=== PATIENT | male | born 1965 | race Asian ===

== ENCOUNTER 2022-04-19 01:15 | Emergency (ER) | payer SELFPAY ==
[2022-04-19 01:32] VITALS: BP 152/76; PULSE 94; O2SAT 97
[2022-04-19 01:42] VITALS: BP 151/96; PULSE 103; RESP 20; TEMP 36.7; O2SAT 94
[2022-04-19 01:44] VITALS: BMI 38.7
--- OUTSIDE RECORDS SUMMARY | 2022-04-19 02:03 | XMS_ITS | Continuity of Care Document ---
:1965 Author Organization [facility] Address [address] [place] [id number]- Care Team Providers Name Role Phone Not on Staff, PCP Primary Care Physician Unavailable Encounter [facility] [place] Date(s): 03/05/22 - 03/05/[address] [address]- Encounter Diagnosis Abdominal pain (Final) - 03/05/22 Atypical chest pain (Final) - 03/05/22 Depression (Final) - 03/05/22 Alcohol use (Final) - 03/05/22 Discharge Disposition: A-D/C Home Attending Physician: Israel Chen MD Admitting Physician: Israel Chen MD Referring Physician: Not on Staff, Referring MD Allergies, Adverse Reactions, Alerts No Known Allergies Medications acamprosate 333 mg oral delayed release tablet 1 tablet = 333 mg, By Mouth, 3 times a day, # 42 tablet, 0 Refills, Maintenance, 07/19/20 18:35:00 EDT, EC Tablet, [facility]/pharmacy #[id number], Partial fill upon patient request if the prescription is for a schedule II opioid drug. Start Date: 07/19/20 Stop Date: 08/02/20 Status: Orderedfolic acid 1 mg oral tablet 1 mg, 1, tablet, By Mouth, Daily, # 30 tablet, Refills 0, Tot. Refills 0, Maintenance, 07/19/20 18:34:00 EDT, Route to Pharmacy Electronically, [facility]/pharmacy #[id number], Partial fill upon patient request if the prescription is for a schedule II opioid drug. Start Date: 07/19/20 Stop Date: 08/18/20 Status: Orderedlisinopril 20 mg oral tablet 20 mg, 1, tablet, By Mouth, Daily, # 30 tablet, Refills 0, Maintenance, 07/18/20 7:56:00 EDT, Partial fill upon patient request if the prescription is for a schedule II opioid drug. Start Date: 07/18/20 Status: Orderedsertraline 25 mg oral tablet 1 tablet = 25 mg, By Mouth, Daily, # 30 tablet, 0 Refills, Maintenance, 07/18/20 7:57:00 EDT, Tablet, Partial fill upon patient request if the prescription is for a schedule II opioid drug. Start Date: 07/18/20 Status: Ordered Results Radiology Reports Exam Date Time Procedure Performing Provider Status 03/05/22 6:[address] Abd/Pelvis W/ IV Contrast Only Liza Niño; Jenna (Verified) Notes:(CT Abd/Pelvis W/ IV Contrast Only) Reason For Exam: RUQ abdominal pain;PainRESULT: CT Abd/Pelvis W/ IV Contrast Only CT Chest W/ Contrast, CT Abd/Pelvis W/ IV Contrast Only Reason: Other:; Chest Pain; Clinical Question(s): Other: TECHNIQUE: Helical CT scan of the chest, abdomen and pelvis with IV contrast, formatted in 3 planes.The study was performed with enteric contrast. Weight- based protocol using automatic tube modulationwas used to optimize exposure parameters. CTDIvol Body: 18.90 mGy, DLP Body: 1442 mGy*cm. COMPARISON: CT chest 07/18/2020 FINDINGS - CHEST: TOPOGRAM, LINES AND TUBES: None. TRACHEA AND MAIN BRONCHI: Patent without evidence of tracheal or endobronchial lesion. LUNGS AND PLEURA: Mild dependent subsegmental atelectasis. No consolidation or pulmonary mass. Mild apical emphysema. No pleural effusion or pneumothorax. MEDIASTINUM AND PURNIMA: Visualized thyroid gland is normal. No mediastinal or hilar lymphadenopathy. Esophagus is nondistended. HEART AND VESSELS: Heart is at the upper limits of normal for size. Mitral and tricuspid valve replacements. Left atrial appendage clip. Mediastinal surgical clips. No pericardial effusion. Mild coronary artery calcifications. Thoracic aorta is nonaneurysmal. Mild aortic calcifications. Pulmonary arteries are normal in caliber. DIAPHRAGM: Unremarkable. CHEST WALL: Unremarkable. FINDINGS - ABDOMEN AND PELVIS: LIVER: Diffuse hepatic steatosis. Severe cirrhotic morphology again demonstrated as evidenced by nodular contour, interlobar atrophy and posterior notching of right hepatic lobe. No suspicious lesion. GALLBLADDER: Moderately distended with otherwise normal CT appearance. BILE DUCTS: No biliary ductal dilatation. SPLEEN: Normal. PANCREAS: Normal. No pancreatic ductal dilatation. ADRENAL GLANDS: No nodules. KIDNEYS AND URETERS: No hydronephrosis. Kidneys enhance symmetrically. Subcentimeter right renal hypodensity, too small to characterize, but likely representing a cyst. No suspicious mass. BLADDER: Bladder is normal. REPRODUCTIVE: STOMACH AND BOWEL: Stomach is physiologically-distended. No bowel obstruction. No inflammatory changes. APPENDIX: Normal. PERITONEUM AND RETROPERITONEUM: No pneumoperitoneum or loculated fluid collection. No omental or mesenteric mass. LYMPH NODES: No lymphadenopathy. VESSELS: Mild atherosclerotic calcification. Abdominal aorta is nonaneurysmal. Portosplenic veins are patent without venous thrombosis. Recanalized paraumbilical vein again demonstrated. ABDOMINAL WALL: Unremarkable. FINDINGS - BONES: Multilevel degenerative changes involve the spine. Chronic appearing right anterior second and thirdrib fractures, unchanged. No acute osseous abnormality. Median sternotomy wires. IMPRESSION - CHEST: 1. Cardiac postsurgical changes with no acute abnormality. 2. No pulmonary consolidation. IMPRESSION - ABDOMEN AND PELVIS: 1. No acute abnormality in the abdomen and pelvis. 2. Hepatic steatosis and severe cirrhosis. 3. Portal hypertension as evidenced by recanalized paraumbilical vein. No ascites. WSN: [id number] Ordering Physician: Devonte Chavez Dictated By: Israel Hay MD Dictated Date/Time: 03/05/22 6:46 pm Reviewed By: Israel Hay MD Signed By: Israel Hay MD Signed Date/Time: 03/05/22 6:46 pm Transcribed By: ALDA Transcribed Date/Time: 03/05/22 6:32 pm Exam Date Time Procedure Performing Provider Status 03/05/22 6:[address] Chest W/ Contrast Erin Niño; Jenna ([place]) Notes:(CT Chest W/ Contrast) Reason For Exam: Chest Pain;Other:RESULT: CT Chest W/ Contrast CT Chest W/ Contrast, CT Abd/Pelvis W/ IV Contrast Only Reason: Other:; Chest Pain; Clinical Question(s): Other: TECHNIQUE: Helical CT scan of the chest, abdomen and pelvis with IV contrast, formatted in 3 planes.The study was performed with enteric contrast. Weight- based protocol using automatic tube modulationwas used to optimize exposure parameters. CTDIvol Body: 18.90 mGy, DLP Body: 1442 mGy*cm. COMPARISON: CT chest 07/18/2020 FINDINGS - CHEST: TOPOGRAM, LINES AND TUBES: None. TRACHEA AND MAIN BRONCHI: Patent without evidence of tracheal or endobronchial lesion. LUNGS AND PLEURA: Mild dependent subsegmental atelectasis. No consolidation or pulmonary mass. Mild apical emphysema. No pleural effusion or pneumothorax. MEDIASTINUM AND PURNIMA: Visualized thyroid gland is normal. No mediastinal or hilar lymphadenopathy. Esophagus is nondistended. HEART AND VESSELS: Heart is at the upper limits of normal for size. Mitral and tricuspid valve replacements. Left atrial appendage clip. Mediastinal surgical clips. No pericardial effusion. Mild coronary artery calcifications. Thoracic aorta is nonaneurysmal. Mild aortic calcifications. Pulmonary arteries are normal in caliber. DIAPHRAGM: Unremarkable. CHEST WALL: Unremarkable. FINDINGS - ABDOMEN AND PELVIS: LIVER: Diffuse hepatic steatosis. Severe cirrhotic morphology again demonstrated as evidenced by nodular contour, interlobar atrophy and posterior notching of right hepatic lobe. No suspicious lesion. GALLBLADDER: Moderately distended with otherwise normal CT appearance. BILE DUCTS: No biliary ductal dilatation. SPLEEN: Normal. PANCREAS: Normal. No pancreatic ductal dilatation. ADRENAL GLANDS: No nodules. KIDNEYS AND URETERS: No hydronephrosis. Kidneys enhance symmetrically. Subcentimeter right renal hypodensity, too small to characterize, but likely representing a cyst. No suspicious mass. BLADDER: Bladder is normal. REPRODUCTIVE: STOMACH AND BOWEL: Stomach is physiologically-distended. No bowel obstruction. No inflammatory changes. APPENDIX: Normal. PERITONEUM AND RETROPERITONEUM: No pneumoperitoneum or loculated fluid collection. No omental or mesenteric mass. LYMPH NODES: No lymphadenopathy. VESSELS: Mild atherosclerotic calcification. Abdominal aorta is nonaneurysmal. Portosplenic veins are patent without venous thrombosis. Recanalized paraumbilical vein again demonstrated. ABDOMINAL WALL: Unremarkable. FINDINGS - BONES: Multilevel degenerative changes involve the spine. Chronic appearing right anterior second and thirdrib fractures, unchanged. No acute osseous abnormality. Median sternotomy wires. IMPRESSION - CHEST: 1. Cardiac postsurgical changes with no acute abnormality. 2. No pulmonary consolidation. IMPRESSION - ABDOMEN AND PELVIS: 1. No acute abnormality in the abdomen and pelvis. 2. Hepatic steatosis and severe cirrhosis. 3. Portal hypertension as evidenced by recanalized paraumbilical vein. No ascites. WSN: [id number] Ordering Physician: Devonte Chavez Dictated By: Bharti RESENDIZ, Israel Oswald Dictated Date/Time: 03/05/22 6:46 pm Reviewed By: Israel Hay MD Signed By: Israel Hay MD Signed Date/Time: 03/05/22 6:46 pm Transcribed By: ALDA Transcribed Date/Time: 03/05/22 6:32 pm Vital Signs Most recent to oldest [Reference 1 2 3 Range]: Oxygen Saturation [94-100 %] 98 % 100 % 100 % (03/05/22 7:50 PM) (03/05/22 6:24 PM) (03/05/22 4:40 P M) Pulse Rate [55-90 bpm] 62 bpm 79 bpm 70 bpm (03/05/22 7:50 PM) (03/05/22 6:24 PM) (03/05/22 4:40 P M) Blood Pressure [90-138/55-84 mm 113/91 mm Hg 134/91 mm Hg 130/87 mm Hg Hg] (03/05/22 7:50 PM) (03/05/22 6:24 PM) (03/05/22 4:40 P M) Respiratory Rate [16-30 br/min] 16 br/min 13 br/min 18 br/min (03/05/22 7:50 PM) *L* (03/05/22 4:40 PM ) (03/05/22 6:24 PM) Temperature [96.8-100.4 DegF] 97.8 DegF (03/05/22 4:40 PM) Mode of Delivery (Oxygen) Room air Room air Room a ir (03/05/22 7:50 PM) (03/05/22 6:24 PM) (03/05/22 4:40 P M) Blood pressure sites Arm, left Arm, left Arm, left (03/05/22 7:50 PM) (03/05/22 6:24 PM) (03/05/22 4:40 P M) Temperature Route Oral (03/05/22 4:40 PM) Social History Social History Type Response Smoking Status 10 or more cigarettes (1/2 p ack or more)/day in last 30 days; Interested in cessation: No; Patient wants NRT during admission Yes entered on: 07/18/20 Sex Note Israel Chen MD: PERFORM Event Display: Patient Education Leaflets Authored Date: [id number] Depression ?? [id number] Depression Depression is a very common mental health problem. It's not just a state of being unhappy or sad. It's a true disease. The cause seems to be linked to a change in chemicals that send signals in the brain. These things increase a person???s risk of depression: ??? A family history of depression, alcoholism, or suicide ??? Chronic illness ??? Chronic pain ???Migraine headaches ??? High emotional stress Depression may be easier to see in others. You may have a hard time seeing it in yourself. It can show in many physical and emotional ways. These include: ??? Loss of appetite ??? Overeating ??? Not being able to sleep ??? Sleeping too much ??? A lot of tiredness not linked to physical activity ??? Restlessness or irritability ??? Slowness of movement or speech ??? Feeling sad or withdrawn ??? Loss of interest in things you once enjoyed ??? Trouble??concentrating, remembering,??or making decisions ??? Thoughts of harming or killing yourself, or thoughts that life is not worth living ??? Low self-esteem The treatment for depression may include both medicine and psychotherapy. Antidepressants can ease symptoms. They can also make it easier for you to do daily tasks. Therapy can offer emotional support. It can also help you understand things that may be causing the depression. Home care ??? Ongoing care and support help people manage this disease. Find a healthcare provider and therapist who meet your needs. Get help when you feel like you may be getting ill. ??? Be kind toyourself. Make it a point to do things that you enjoy. This may be gardening, walking in nature, or going to a movie. Reward yourself for small successes. ??? Take care of your body. Eat a balanced diet. Eat foods low in saturated fat. Eat a lot of fruits and vegetables. Exercise at least 3 times a week for 30 minutes. Even mild to moderate exercise like brisk walking can make you feel better. ??? Take medicine as prescribed. Don't stop your medicine or change the dose unless you talk with your healthcare provider. ??? Once you start medicine, expect your symptoms to get better slowly. Depression will lift over time. It doesn't get better right away. Ask your healthcare provider how long it will take for a medicine to start working. ??? Don't share your medicine. Don???t use someone else's medicine. ??? Tell your healthcare providers all the medicines you take. This includes prescription and jgli-dbt-[id number] medicines. It includes vitamins and herbal supplements. Some supplements can interact with medicines. They can cause dangerous side effects. Ask your pharmacist about medicine interactionswhen you have questions. ??? Don't make major decisions until you feel better. This includes things such as a job change, a divorce, or a marriage. ??? Don't drink alcohol. It can make depression worse. ??? Talk with your family and??trusted friends??about your feelings and thoughts.??Ask them to helpyou notice behavior changes early. You can then get help and, if needed, your medicine can be changed. ??? Talk with your healthcare provider if you are not getting better. They may change your medicine or have you try another treatment. ?? Follow-up care Follow up with your healthcare provider as advised. ?? Crisis care Call [phone] if you have thoughts of harming yourself or others. When you call or text [phone], you will beconnected to trained crisis counselors. An online chat option is also available. [employer] is free and available 25/09. 988 counselors will work with 911 to help you get the care you need. Call 988 if you: ??? Have suicidal thoughts, a suicide plan, and a way to carry out the plan ??? Have serious thoughts of hurting someone else ??? Have trouble breathing ??? Are??very confused ??? Feel very drowsy or have??trouble awakening ??? Faint ??? Have new chest pain that becomes more severe, lasts longer, or spreads into your shoulder, arm, neck, jaw, or back ?? When to get medical care Call your healthcare provider right away if any of these happen: ??? Your symptoms get worse ??? You have extreme depression, fear, anxiety, or anger toward yourself or others ??? You feel out of control ??? You feel that you may try to harm yourself or another ??? You hear voices other people don't hear ??? You see things other people don't see ??? You don't sleep or eat for 3 days in a row ??? Friends or family express concern over your behavior and ask you to get help ?? Last Reviewed Date: 2021 ?? [employer]. All rights reserved. This information is not intended as a substitute for professional medical care. Always follow your healthcare professional's instructions. ??Israel Chen MD: PERFORM Event Display: Patient Education Leaflets Authored Date: [id number] Psychiatric Outpatient Referral List ?? 263 Psychiatric Outpatient Referral List [facility]hr Emergency [facility]? [address], [place]? [phone] ? [phone] [facility] Central Intake? [phone] ? [phone] [facility]? [address], [place] ? [phone] ? Walk in: T-Th 9:45-12:45pm [facility]? [address], [place]? [phone] [facility]? [phone] [facility]? [address], [place]? [phone] [facility]? [address], [place]?[phone] [facility]? [address], [place]? [phone] [facility]? [address], [place]? [phone] [facility]? [address], [place]? [phone] ? Walk in: M-Th 8:00-4:00pm [facility]? [address], [place]? [phone] [facility] [place] [facility]? [address] [place]? [phone] [facility]? [address], [place] ? [phone] [facility]? [address], [place]? [phone] [facility]? [address], [place]? [phone] [facility]? [place] &&[place]? [phone] [facility] [address], [place]? [phone] [facility]? [place] &&[place]?[phone] [facility]? [address], [place] ? [phone] [facility]? [address], [place]? [phone] [facility]? [address], [place]? [phone] ? Walk in: M-W 9:30 or 10:30am [facility]? [address], [place]? [phone] ? [phone] Domestic Violence 24 Hr Hot Lines: ? [facility]? [phone] ? [facility]? [phone]? [facility]? [phone] ? [facility]? [phone] ?? Elder Services: ? [facility] [place] [facility]? [phone] ? [facility] [place] [facility] ? [phone] ?? Legal Advocacy Hot Line: ? [facility] ? [phone] (9:30-12:45 M-Zenia) ?? [place] Dept of Transitional Assistance: ? [place] [phone] / [place] [phone] / [facility] [phone] ?? [facility]? [address], [place], [place]? [phone] [facility]? [address] [place] [address], [place], [place]? [phone] [facility]? [address], [place], [place]? [phone] [facility] ??? [facility]? [address], [place], [place]? [phone] ? [phone] ? After 5pm:? [phone] [facility] ??? [facility] [address], [place], [place]? [phone] ? [phone]? After 5pm:? [phone] [facility]? [address], [place], [place]? [phone] [facility]? [address], [place], [place]? [phone] ? [phone] [facility]? [address], [place], [place]? [phone] [facility]? [address], [place], [place]? [phone] [facility]? [address], [place], [place]? [phone] [facility]? [address], [place], [place]? [phone] ? [phone] [facility] ?[address], [place], [place]? [phone] [place] [address]? [address], [place], [place]? [phone] ? [phone] [facility]? [address], [place], [place]? [phone] ? [phone] [facility]? [address], [place], [place]? [phone] [facility]? [address], [place], [place] ? [phone] [facility]? [address], [place], [place]? [phone] ? [phone] ? CT Abdomen and Pelvis W contrast IV [facility] , CIS S: TRANSCRIBE Bharti RESENDIZ, Israel Oswald: VERIFY Event Display: Result: Authored Date: [id number] CT Chest W/ Contrast, CT Abd/Pelvis W/ IV Contrast Only Reason: Other:; Chest Pain; Clinical Question(s): Other: TECHNIQUE: Helical CT scan of the chest, abdomen and pelvis with IV contrast, formatted in 3 planes.The study was performed with enteric contrast. Weight- based protocol using automatic tube modulationwas used to optimize exposure parameters. CTDIvol Body: 18.90 mGy, DLP Body: 1442 mGy*cm. COMPARISON: CT chest 07/18/2020 FINDINGS - CHEST: TOPOGRAM, LINES AND TUBES: None. TRACHEA AND MAIN BRONCHI: Patent without evidence of tracheal or endobronchial lesion. LUNGS AND PLEURA: Mild dependent subsegmental atelectasis. No consolidation or pulmonary mass. Mild apical emphysema. No pleural effusion or pneumothorax. MEDIASTINUM AND PURNIMA: Visualized thyroid gland is normal. No mediastinal or hilar lymphadenopathy. Esophagus is nondistended. HEART AND VESSELS: Heart is at the upper limits of normal for size. Mitral and tricuspid valve replacements. Left atrial appendage clip. Mediastinal surgical clips. No pericardial effusion. Mild coronary artery calcifications. Thoracic aorta is nonaneurysmal. Mild aortic calcifications. Pulmonary arteries are normal in caliber. DIAPHRAGM: Unremarkable. CHEST WALL: Unremarkable. FINDINGS - ABDOMEN AND PELVIS: LIVER: Diffuse hepatic steatosis. Severe cirrhotic morphology again demonstrated as evidenced by nodular contour, interlobar atrophy and posterior notching of right hepatic lobe. No suspicious lesion. GALLBLADDER: Moderately distended with otherwise normal CT appearance. BILE DUCTS: No biliary ductal dilatation. SPLEEN: Normal. PANCREAS: Normal. No pancreatic ductal dilatation. ADRENAL GLANDS: No nodules. KIDNEYS AND URETERS: No hydronephrosis. Kidneys enhance symmetrically. Subcentimeter right renal hypodensity, too small to characterize, but likely representing a cyst. No suspicious mass. BLADDER: Bladder is normal. REPRODUCTIVE: STOMACH AND BOWEL: Stomach is physiologically-distended. No bowel obstruction. No inflammatory changes. APPENDIX: Normal. PERITONEUM AND RETROPERITONEUM: No pneumoperitoneum or loculated fluid collection. No omental or mesenteric mass. LYMPH NODES: No lymphadenopathy. VESSELS: Mild atherosclerotic calcification. Abdominal aorta is nonaneurysmal. Portosplenic veins are patent without venous thrombosis. Recanalized paraumbilical vein again demonstrated. ABDOMINAL WALL: Unremarkable. FINDINGS - BONES: Multilevel degenerative changes involve the spine. Chronic appearing right anterior second and thirdrib fractures, unchanged. No acute osseous abnormality. Median sternotomy wires. IMPRESSION - CHEST: 1. Cardiac postsurgical changes with no acute abnormality. 2. No pulmonary consolidation. IMPRESSION - ABDOMEN AND PELVIS: 1. No acute abnormality in the abdomen and pelvis. 2. Hepatic steatosis and severe cirrhosis. 3. Portal hypertension as evidenced by recanalized paraumbilical vein. No ascites. WSN: [id number] Ordering Physician: Devonte Chavez Dictated By: Israel Hay MD Dictated Date/Time: 03/05/22 6:46 pm Reviewed By: Israel Hay MD Signed By: Israel Hay MD Signed Date/Time: 03/05/22 6:46 pm Transcribed By: ALDA Transcribed Date/Time: 03/05/22 6:[address] Chest W contrast IV [facility] , CIS S: TRANSCRIBE Israel Hay MD: VERIFY Event Display: Result: Authored Date: [id number] CT Chest W/ Contrast, CT Abd/Pelvis W/ IV Contrast Only Reason: Other:; Chest Pain; Clinical Question(s): Other: TECHNIQUE: Helical CT scan of the chest, abdomen and pelvis with IV contrast, formatted in 3 planes.The study was performed with enteric contrast. Weight- based protocol using automatic tube modulationwas used to optimize exposure parameters. CTDIvol Body: 18.90 mGy, DLP Body: 1442 mGy*cm. COMPARISON: CT chest 07/18/2020 FINDINGS - CHEST: TOPOGRAM, LINES AND TUBES: None. TRACHEA AND MAIN BRONCHI: Patent without evidence of tracheal or endobronchial lesion. LUNGS AND PLEURA: Mild dependent subsegmental atelectasis. No consolidation or pulmonary mass. Mild apical emphysema. No pleural effusion or pneumothorax. MEDIASTINUM AND PURNIMA: Visualized thyroid gland is normal. No mediastinal or hilar lymphadenopathy. Esophagus is nondistended. HEART AND VESSELS: Heart is at the upper limits of normal for size. Mitral and tricuspid valve replacements. Left atrial appendage clip. Mediastinal surgical clips. No pericardial effusion. Mild coronary artery calcifications. Thoracic aorta is nonaneurysmal. Mild aortic calcifications. Pulmonary arteries are normal in caliber. DIAPHRAGM: Unremarkable. CHEST WALL: Unremarkable. FINDINGS - ABDOMEN AND PELVIS: LIVER: Diffuse hepatic steatosis. Severe cirrhotic morphology again demonstrated as evidenced by nodular contour, interlobar atrophy and posterior notching of right hepatic lobe. No suspicious lesion. GALLBLADDER: Moderately distended with otherwise normal CT appearance. BILE DUCTS: No biliary ductal dilatation. SPLEEN: Normal. PANCREAS: Normal. No pancreatic ductal dilatation. ADRENAL GLANDS: No nodules. KIDNEYS AND URETERS: No hydronephrosis. Kidneys enhance symmetrically. Subcentimeter right renal hypodensity, too small to characterize, but likely representing a cyst. No suspicious mass. BLADDER: Bladder is normal. REPRODUCTIVE: STOMACH AND BOWEL: Stomach is physiologically-distended. No bowel obstruction. No inflammatory changes. APPENDIX: Normal. PERITONEUM AND RETROPERITONEUM: No pneumoperitoneum or loculated fluid collection. No omental or mesenteric mass. LYMPH NODES: No lymphadenopathy. VESSELS: Mild atherosclerotic calcification. Abdominal aorta is nonaneurysmal. Portosplenic veins are patent without venous thrombosis. Recanalized paraumbilical vein again demonstrated. ABDOMINAL WALL: Unremarkable. FINDINGS - BONES: Multilevel degenerative changes involve the spine. Chronic appearing right anterior second and thirdrib fractures, unchanged. No acute osseous abnormality. Median sternotomy wires. IMPRESSION - CHEST: 1. Cardiac postsurgical changes with no acute abnormality. 2. No pulmonary consolidation. IMPRESSION - ABDOMEN AND PELVIS: 1. No acute abnormality in the abdomen and pelvis. 2. Hepatic steatosis and severe cirrhosis. 3. Portal hypertension as evidenced by recanalized paraumbilical vein. No ascites. WSN: [id number] Ordering Physician: Devonte Chavez Dictated By: Israel Hay MD Dictated Date/Time: 03/05/22 6:46 pm Reviewed By: Israel Hay MD Signed By: Israel Hay MD Signed Date/Time: 03/05/22 6:46 pm Transcribed By: CSB Transcribed Date/Time: 03/05/22 6:32 pm Patient Care team information Care Team PersonnelName: Hazel Starr RN Position: [facility] RN Member Role: Primary Care Nurse Name: Not on Staff, PCP Position: [facility] Physician (General Medicine) Member Role: PCP Name: Ruby Garcia Position: [facility] ED TA [facility] Member Role: Four Roll Calender Operator Name: Israel Chen MD Position: [facility] Resident Member Role: Admitting Physician Address: Address: [address] [place] [address] Name: Devonte Chavez DO Position: [facility] Resident Member Role: ED Resident Address: Address: [address] [place] [address] Name: Kasandra Conroy RN Position: [facility] ED RN W/OE and Tasks Member Role: Patient Care Provider
--- OUTSIDE RECORDS SUMMARY | 2022-04-19 02:03 | XMS_ITS | Continuity of Care Document ---
:1965 Author Organization [facility] Address [address] [place] [address]- Care Team Providers Name Role Phone Not on Staff, PCP Primary Care Physician Unavailable Encounter [facility] Date(s): 07/18/20 - 07/19/[address] [id number] Discharge Disposition: A-D/C AMA Attending Physician: Joseline Arriaga MD Admitting Physician: Margarito Beck MD Referring Physician: Not on Staff, Referring MD Allergies, Adverse Reactions, Alerts Substance Reaction Severity Status NKA Active Medications acamprosate 333 mg oral delayed release tablet 1 tablet = 333 mg, By Mouth, 3 times a day, # 42 tablet, 0 Refills, Maintenance, 07/19/20 18:35:00 EDT, EC Tablet, [facility]/pharmacy #[id number], Partial fill upon patient request if the prescription is for a schedule II opioid drug. Start Date: 07/19/20 Stop Date: 08/02/20 Status: Orderedacetaminophen 325 mg oral tablet 650 mg, Tablet, By Mouth, Every 4 hours, PRN for Pain , Moderate, Routine, 07/18/20 9:52:00 EDT Start Date: 07/18/20 Stop Date: 08/17/20 Status: Orderedfolic acid 1 mg oral tablet 1 mg, 1, tablet, By Mouth, Daily, # 30 tablet, Refills 0, Tot. Refills 0, Maintenance, 07/19/20 18:34:00 EDT, Route to Pharmacy Electronically, [facility]/pharmacy #[id number], Partial fill upon patient request if the prescription is for a schedule II opioid drug. Start Date: 07/19/20 Stop Date: 08/18/20 Status: Orderedlisinopril 20 mg oral tablet 20 mg, 1, tablet, By Mouth, Daily, # 30 tablet, Refills 0, Maintenance, 07/18/20 7:56:00 EDT, Partial fill upon patient request if the prescription is for a schedule II opioid drug. Start Date: 07/18/20 Status: Orderedpyridoxine 50 mg oral tablet 50 mg, 1, tablet, By Mouth, Daily, for 14 days, # 14 tablet, Refills 0, Tot. Refills 0, Acute 08/02/20 18:35:00 EDT, 07/19/20 18:35:00 EDT, Route to Pharmacy Electronically, [facility]/pharmacy #[id number], Partialfill upon patient request if the prescription is... Start Date: 07/19/20 Stop Date: 08/02/20 Status: Orderedsertraline 25 mg oral tablet 1 tablet = 25 mg, By Mouth, Daily, # 30 tablet, 0 Refills, Maintenance, 07/18/20 7:57:00 EDT, Tablet, Partial fill upon patient request if the prescription is for a schedule II opioid drug. Start Date: 07/18/20 Status: Orderedthiamine 100 mg oral tablet 100 mg, 1, tablet, By Mouth, 2 times a day, for 7 days, # 14 tablet, Refills 0, Tot. Refills 0, Acute 07/26/20 18:34:00 EDT, 07/19/20 18:34:00 EDT, Route to Pharmacy Electronically, [facility]/pharmacy #[id number],Partial fill upon patient request if the prescrip... Start Date: 07/19/20 Stop Date: 07/26/20 Status: Ordered Vital Signs Most recent to oldest 1 2 3 [Reference Range]: Oxygen Saturation [94-100 %] 97 % 97 % 97 % (07/19/20 4:00 PM) (07/19/20 12:00 PM) (07/19/20 9: 41 AM) Pulse Rate [55-90 bpm] 100 bpm 97 bpm 88 bpm *H* *H* (07/19/20 9:41 AM ) (07/19/20 4:26 PM) (07/19/20 12:20 PM) Blood Pressure [90-138/55-84 158/96 mm Hg 140/87 mm Hg 151 /87 mm Hg mm Hg] *H* *H* *H* (07/19/20 4:26 PM) (07/19/20 12:20 PM) (07/19/20 9: 41 AM) Respiratory Rate [16-30 20 br/min 20 br/min 20 br/mi n br/min] (07/19/20 4:26 PM) (07/19/20 4:03 PM) (07/19/20 12: 20 PM) Temperature [96.8-100.4 97.2 DegF 98.7 DegF 98.1 Deg F DegF] (07/19/20 4:00 PM) (07/19/20 12:20 PM) (07/19/20 9: 41 AM) Liters per Minute 2 L/min (07/18/20 3:19 AM) Mode of Delivery (Oxygen) Room air Room air Room a ir (07/19/20 4:00 PM) (07/19/20 12:00 PM) (07/19/20 9: 41 AM) Blood pressure sites Arm, left Arm, left Arm, left (07/19/20 4:00 PM) (07/19/20 12:00 PM) (07/19/20 9: 41 AM) Temperature Route Oral Oral Oral (07/19/20 12:00 PM) (07/19/20 9:41 AM) (07/19/20 12 :29 AM) Social History Social History Type Response Smoking Status 10 or more cigarettes (1/2 p ack or more)/day in last 30 days; Interested in cessation: No; Patient wants NRT during admission Yes entered on: 07/18/20 Sex
[2022-04-19] MEDS: LORazepam 1 MG TABLET 2 MG PO ×2 (02:31→03:43)
[2022-04-19 04:19] LABS: MANUAL DIFF FLAG NO
[2022-04-19 04:20] LABS: Basophils Absolute Auto 0.1 X10*3/uL (0.0-0.2); Basophils Percent Auto 1.2 % (0-2); Eosinophils Absolute Auto 0.3 X10*3/uL (0.0-0.4); Eosinophils Percent Auto 4.8 % (0-4); Hematocrit 44.9 % (42.0-52.0); Hemoglobin 15.7 g/dl (14.0-18.0); Imm Gran Abs Auto 0.02 X10*3/uL (0.00-0.03); Imm Gran Pct Auto 0.3 % (0.0-0.4); Lymphocytes Absolute Auto 2.4 X10*3/uL (1.2-4.9); Lymphocytes Percent Auto 37.6 % (20-40); Mean Corpuscular Hemoglobin 30.7 pg (27.0-33.0); Mean Corpuscular Volume 87.9 fL (80.0-98.0); Mean Platelet Volume 9.8 fL (9.4-12.4); Monocytes Absolute Auto 0.5 X10*3/uL (0.1-1.2); Monocytes Percent Auto 7.3 % (2-11); Neutrophils Absolute Auto 3.1 x10*3/uL (2.0-8.3); Neutrophils Percent Auto 48.8 % (45-73); Platelet Count 156 X10*3/uL (160-400); Red Blood Count 5.11 X10*6/uL (4.60-5.80); Red Cell Distribution Width 14.2 % (11.0-16.0); White Blood Count 6.4 X10*3/uL (4.8-10.8)
[2022-04-19 04:25] LABS: INTERNATIONAL NORM RATIO 1.1 (0.9-1.1); Prothrombin Time 12.1 SEC (10.0-13.1)
[2022-04-19 04:31] LABS: COVID-19 Test Negative (Negative); IDNOW Serial# 6674DD1D
[2022-04-19 04:37] LABS: Alanine Aminotransferase 59 U/L (0-40); Alkaline Phosphatase 65 U/L (39-117); Anion Gap 20 (12-20); Aspartate Amino Transferase 82 U/L (5-37); Bilirubin Total 1.3 mg/dL (0.0-1.0); Blood Urea Nitrogen 8 mg/dL (9-16); Calcium 8.7 mg/dL (8.4-10.2); Carbon Dioxide 19 mmol/L (22-29); Chloride 108 mmol/L (96-108); Estimated Glomerular Filt Rate > 60; Ethanol 323 mg/dL; Glucose Random 88 mg/dL (60-115); Magnesium 1.6 mg/dL (1.6-2.6); Potassium 3.6 mmol/L (3.3-5.1); Sodium 143 mmol/L (135-145)
--- NOTE | 2022-04-19 05:18 | ED.ALCOHOL ---
HPI - Alcohol General Chief Complaint: ETOH/Substance Use Stated Complaint: etoh Time Seen by Provider: 04/19/22 02:08 Source: patient and EMS Mode of arrival: EMS Limitations: no limitations History of Present Illness HPI narrative: patient with history of alcohol abuse had about half a L of vodka earlier plan to go to detox in the a.m. came here as he does not want to go in withdrawal and wants some medication to relax Related Data Allergies Allergy/AdvReac Type Severity Reaction Status Date / Time No Known Allergies Allergy Verified 04/19/22 01:47 Review of Systems Review of Systems: Yes all other systems are reviewed and are negative PENDING SALE TO [facility] Social History Social History Advance Directives: No Physical Exam ED Vital Signs: Vital Signs - 24 hr 04/19/22 01:42 Temperature 98.0 F Pulse Rate 103 H Respiratory Rate 20 Blood Pressure 151/96 H Pulse Oximetry 94 Oxygen Delivery Method Room Air BMI result Body Mass Index 38.7 Appearance: Alert. Oriented X3. No acute distress. ETOH Eyes: PERRLA, No Nystagmus ENT: Pharynx normal. Oral Mucosa moist Neck: Normal inspection. Neck supple. CVS: Normal heart rate and rhythm. Pulses normal. Respiratory: No respiratory distress. Equal air entry bilateral, no wheezing/rales/rhonchi Abdomen: Soft and nontender. Bowel sounds are present, no mass palpable, no CVA tenderness Skin: Skin warm and dry. Normal skin color. Normal skin turgor. Extremities: No lower extremity edema. No calf tenderness Neuro: Oriented X 3. No motor deficit. No sensory deficit.No cerebellar signs , cranial nerves II-XII intact Medical Decision Making Medical Decision Making MDM Narrative: patient ambulate in a steady gait in the ER complained to nursing station frequently. Plan to go to detox in the a.m. office on will discharge when patient is sober if he wants to go home Lab Data [facility] Lab Attestation statement: I reviewed the patient's lab results. 04/19/22 04:12 04/19/22 04:12 Labs: Lab Results 04/19/22 04/19/22 04/19/22 Range/Units 04:12 04:12 04:12 WBC 6.4 (4.8-10.8) X10*3/uL RBC 5.11 (4.60-5.80) X10*6/uL Hgb 15.7 (14.0-18.0) g/dl Hct 44.9 (42.0-52.0) % MCV 87.9 (80.0-98.0) fL MCH 30.7 (27.0-33.0) pg MCHC 35.0 (31.0-36.0) g/dl RDW 14.2 (11.0-16.0) % Plt Count 156 L (160-400) X10*3/uL MPV 9.8 (9.4-12.4) fL Immature Gran % (Auto) 0.3 (0.0-0.4) % Neut % (Auto) 48.8 (45-73) % Lymph % (Auto) 37.6 (20-40) % Jefferson % (Auto) 7.3 (2-11) % Eos % (Auto) 4.8 H (0-4) % Baso % (Auto) 1.2 (0-2) % Lymph # (Auto) 2.4 (1.2-4.9) X10*3/uL Jefferson # (Auto) 0.5 (0.1-1.2) X10*3/uL Eos # (Auto) 0.3 (0.0-0.4) X10*3/uL Baso # (Auto) 0.1 (0.0-0.2) X10*3/uL Abs Immat Gran (auto) 0.02 (0.00-0.03) X10*3/uL Absolute Neuts (auto) 3.1 (2.0-8.3) x10*3/uL Absolute Nucleated RBC 0.000 (0.0-0.012) X10*3/uL Nucleated RBC % (auto) 0.0 (0.0-0.2) /100WBC PT 12.1 (10.0-13.1) SEC INR 1.1 (0.9-1.1) Sodium (135-145) mmol/L Potassium (3.3-5.1) mmol/L Chloride (96-108) mmol/L Carbon Dioxide (22-29) mmol/L Anion Gap (12-20) BUN (9-16) mg/dL Creatinine (0.5-1.4) mg/dL Estim Creat Clear Calc Estimated GFR Random Glucose (60-115) mg/dL Calcium (8.4-10.2) mg/dL Magnesium (1.6-2.6) mg/dL Total Bilirubin (0.0-1.0) mg/dL AST (5-37) U/L ALT (0-40) U/L Alkaline Phosphatase (39-117) U/L Total Protein (6.5-8.0) g/dL Albumin (3.5-5.0) g/dL Ethyl Alcohol mg/dL COVID-19 (ALEX) Negative (Negative) COVID-19 Clin Com See Note 04/19/22 Range/Units 04:12 WBC (4.8-10.8) X10*3/uL RBC (4.60-5.80) X10*6/uL Hgb (14.0-18.0) g/dl Hct (42.0-52.0) % MCV (80.0-98.0) fL MCH (27.0-33.0) pg MCHC (31.0-36.0) g/dl RDW (11.0-16.0) % Plt Count (160-400) X10*3/uL MPV (9.4-12.4) fL Immature Gran % (Auto) (0.0-0.4) % Neut % (Auto) (45-73) % Lymph % (Auto) (20-40) % Jefferson % (Auto) (2-11) % Eos % (Auto) (0-4) % Baso % (Auto) (0-2) % Lymph # (Auto) (1.2-4.9) X10*3/uL Jefferson # (Auto) (0.1-1.2) X10*3/uL Eos # (Auto) (0.0-0.4) X10*3/uL Baso # (Auto) (0.0-0.2) X10*3/uL Abs Immat Gran (auto) (0.00-0.03) X10*3/uL Absolute Neuts (auto) (2.0-8.3) x10*3/uL Absolute Nucleated RBC (0.0-0.012) X10*3/uL Nucleated RBC % (auto) (0.0-0.2) /100WBC PT (10.0-13.1) SEC INR (0.9-1.1) Sodium 143 (135-145) mmol/L Potassium 3.6 (3.3-5.1) mmol/L Chloride 108 (96-108) mmol/L Carbon Dioxide 19 L (22-29) mmol/L Anion Gap 20 (12-20) BUN 8 L (9-16) mg/dL Creatinine 0.75 (0.5-1.4) mg/dL Estim Creat Clear Calc 146.0 Estimated GFR > 60 Random Glucose 88 (60-115) mg/dL Calcium 8.7 (8.4-10.2) mg/dL Magnesium 1.6 (1.6-2.6) mg/dL Total Bilirubin 1.3 H (0.0-1.0) mg/dL AST 82 H (5-37) U/L ALT 59 H (0-40) U/L Alkaline Phosphatase 65 (39-117) U/L Total Protein 8.0 (6.5-8.0) g/dL Albumin 4.0 (3.5-5.0) g/dL Ethyl Alcohol 323 H* mg/dL COVID-19 (ALEX) (Negative) COVID-19 Clin Com Medications Administered Discontinued Medications Generic Name Dose Route Start Last Admin Trade Name Freq PRN Reason Stop Dose Admin Lorazepam 2 mg 04/19/22 02:08 04/19/22 02:31 Lorazepam 1 Mg Tablet PO 04/19/22 02:09 2 mg ONCE ONE Administration Lorazepam 2 mg 04/19/22 03:27 04/19/22 03:43 Lorazepam 1 Mg Tablet PO 04/19/22 03:28 2 mg ONCE ONE Administration Discharge Plan Discharge Clinical Impression: Alcoholic intoxication Patient Disposition: Home, Self-Care Instructions: Alcohol Intoxication (ED) Additional Instructions: stop alcohol abuse follow-up with detox
--- NOTE | 2022-04-19 05:46 | PC.NURSE ---
Addendum entered by Rachelle Ventura 04/19/22 05:49: Pt escorted to the waiting room while on the phone with family for a ride home. Original Note: Security at bedside throughout visit as pt continues to be difficult. Pt swearing at staff, trying to walk into the nurses station, refusing to wear a mask, asking for alcohol. Pt giving registration inaccurate demographics, pt reporting multiple different stories to MD. Pt speaking very inappropriately to staff, frequently commenting on the appearance of the nurses. Pt provided with discharge paperwork by Chloe CRAWFORD.
== END 2022-04-19 05:50 | disposition home or self-care (01) ==
PROVIDERS: Emergency Provider Internal Medicine
DX: F10.220 Alcohol dependence with intoxication, uncomplicated (principal); Y90.8 Blood alcohol level of 240 mg/100 ml or more; Z20.822 Contact with and (suspected) exposure to COVID-19
CPT/HCPCS: 36415; 80053; 82077; 83735; 85025; 85610; 87635; 99283